=== PATIENT | female | born 1940 | race Caucasian/White ===

== ENCOUNTER → 2017-08-13 12:40 | Outpatient (CLI) | payer MEDICARE, OTHER, MEDICAID, SELFPAY ==
[2017-08-13 14:39] LABS: Absolute Neutrophil Count 3.5 X10^3/uL (2.0-7.7); Basophil# 0.02 X10^3/uL; Basophil% 0.3 % (0-1); Eosinophil# 0.17 X10^3/uL; Eosinophils% 2.6 % (0-5); Hemoglobin 14.7 g/dl (12.0-15.0); Lymphocyte % 29.5 % (19-41); Mean Corp Hgb Conc 31.3 g/gl (32-36); Mean Corpuscular Hgb 32.2 pg (27.0-32.0); Mean Corpuscular Volume 103.1 fL (81-99); Mean Platelet Vol. 11.3 fl (6.2-12.0); Monocyte# 0.88 X10^3/uL; Monocyte% 13.6 % (0-10); Neutrophil # 3.47 X10^3/uL (2.7-7.7); Neutrophil % 53.8 % (47-70); Platelet Count 98 K/mm3 (150-450); RBC Distribution Width CV 15.2 % (11.6-14.6); RBC Distribution Width SD 57.1 fl (35.1-43.9); Red Blood Count 4.56 M/mm3 (4.2-5.4); White Blood Count 6.5 K/mm3 (4.4-11.0)
[2017-08-13 14:40] LABS: POSITIVE COUNT NO; POSITIVE DIFFERENTIAL NO; POSITIVE MORPHOLOGY NO
[2017-08-13 14:50] LABS: BUN 88 mg/dL (7-18); Creatinine, Serum 2.95 mg/dL (0.55-1.02); Glucose 157 mg/dL (74-106)
[2017-08-13 14:51] LABS: BUN/Creat Ratio 29.8 RATIO (10-20); Calcium,Total 9.5 mg/dL (8.5-10.1); Chloride 98 mmol/L (98-107); EST Glomerular Filtration Rate 16 mL/min (>60); Est Glom Filt Rate - Afr Amer 20 mL/min (>60); Magnesium 2.7 mg/dL (1.6-2.6); Phosphorus 3.8 mg/dL (2.5-4.9); Potassium 5.1 mmol/L (3.5-5.1); Sodium Level 141 mmol/L (136-145)
[2017-08-13 14:59] LABS: Vitamin D,25 Hydroxy 46.4 ng/mL (29.95-100.01)
[2017-08-13 15:05] LABS: PTHIN 70.7 pg/mL (18.4-80.1)
[2017-08-13 15:11] LABS: Microalbumin,Random Urine 79.4 mg/L (NO RANGE EST.); Microalbumin:Creatinine Ratio 277.6 mg/g CRE (<30 mg/g CRE)
== END ==
PROVIDERS: Family Provider Family Medicine; PCP Family Medicine; Visit Provider Internal Medicine Nephrology
DX: N18.4 Chronic kidney disease, stage 4 (severe) (principal); D63.1 Anemia in chronic kidney disease; N25.81 Secondary hyperparathyroidism of renal origin; E83.42 Hypomagnesemia; E78.5 Hyperlipidemia, unspecified
CPT/HCPCS: 36415; 80069; 82043; 82306; 82570; 83735; 83970; 85025

== ENCOUNTER 2017-08-19 15:00 | Outpatient (RCR) | payer MEDICARE, SELFPAY ==
--- NOTE | 2017-07-01 17:24 | HP.PTEVAL_ITS ---
Patient's Visit Information ELLE ALONSO is a 76 year old F referred to Physical Therapy by DO TEE Roldan with a diagnosis of vertigo. Date of Evaluation: 07/01/17 Physical Therapist: Angélica Watkins - Visit Plan Frequency: 1-2x /Week Duration: 4 Weeks Plan: 1-2X/ week if needed for Eply and for balance training if needed/LE strength with HEP - Subjective Subjective: Pt reports that she can hardly hear. She usually get dizzy if she turns her head too fast or if she moves too fast. Sometimes she can get dizzy when she rolls over in bed but it does not matter which side. She feels the sound of her heart beat in her head and then she will get dizzy for 50% of the time. the dizziness will last maybe a minute. The room does not spin but her head does spin. She has not hit her head recently. This all started about 1 week to 1.5 weeks ago. said that the crystals in her ear is what was causing the dizziness. She normally walks with a cane since her heart attacks. She is not very steady on her feet. She reports that her hips hurt a lot - Objective + L Hallpike for torsional nystagmus that lasted 30 seconds....treated with L EPLY. Pt had a lot of trouble with rolling to R side as well as turning her head to the R with correction. + L hallpike again for trsional nystagmus that lasted about 20 seconds on second attempt and treated with L Eply with second therapist to help position pt to complete the EPLY. + L hallpike to the L for trsional nystagmus that lasted less than 10 seoconds and treated agian with the L EPLy with assist of another therapist. Advised pt to not lay flat until 9;00 tongiht. - Goals Goal 1:: I HEP Goal 2:: Abolish dizziness Goal Time Frame: 2 Weeks Goal 3:: Test balance if needed Goal Time Frame: 2 Weeks - Rehabilitation Potential Rehabilitation Potential: Good - Anticipated Interventions Patient/Client Instruction: Educate patient on: Condition, Plan of Care For the Purpose of:: To increase tolerance to activity/condition/position, To improve performance and independence with ADL's, To decrease level of supervision to perform tasks, To improve ability of physical actions for home/ community/work/leisure, To improve gait and locomotor functions Therapeutic Exercise to Include: Strength training, Balance training, Gait and locomotor training For the Purpose of:: To improve ability to perform ADL's, To increase tolerance to activity/condition/position, To improve performance and independence with ADL 's, To improve ability of physical actions for home/community/work/leisure, To improve gait and locomotor functions, To improve balance Functional Training to Include: Gait training For the Purpose of:: To improve gait and locomotor functions Manual Therapy Techniques to Include: Other Comment: EPLY Thank you for the opportunity to evaluate your patient. For Medicare and Medicare HMO plans, please review the plan of care and approve it. It will need to be FAXED BACK to us at [phone] for Medicare purposes. Please let me know if there are questions or concerns regarding this plan of care. Physician Signature: Date:
--- NOTE | 2017-08-06 19:09 | HP.PTREVAL_ITS ---
Nik Preciado DO, [id number] It has been my pleasure to treat ELLE ALONSO over the last 4 visits for vertigo. Please see the progress note below for an update on the physical therapy plan of care! Subjective: Pt returns to physical therapy with a dx of unsteady gait. She does not have the same dizziness like she used to have. If she gets dizzy its because she bends over too fast. Pt has had no recent falls. She has been using the cane for 2 years. She is spending alot of time in bed. She goes to bed around 10-11 pm and then she gets out of bed between 6am and 12pm. She takes an afternoon nap can be up to a couple of hours. Her DIL does all her grocery shopping. SHe has not been gettign out much in the cold weather. Pt has some trouble getting out of achair. She does not use the stairs. She has some trouble getting in and out of lower level cars. She reports that her R hip hurts when she moves a certain way but the L one is starting to hurt alos. She is not exercising either. Most of her activities are sitting througout the day. Pt has bed rails at home that assists with her getting in and otu of bed. Objective/Function: See above Plan Plan: 2X/ week for 4 weeks for LE strengthening, balance activities, gait training, endurance activities Goals Goal 1:: I HEP Goal 2:: Abolish dizziness Goal Time Frame: 2 Weeks Goal Progress: Goal Met Goal 3:: Test balance if needed Goal Time Frame: 2 Weeks Goal 4:: Increase FGA by 5 points to a score of 10 to decrease fall risk. Goal Time Frame: 4-6 Weeks Goal 5:: Increase LE strength by 1/2 muscle grade to increase function and decrease fall risk (LE mmt at time of eval: LE MMT: B hip abd 4/5, R hip flex 4 /5 and L 4-/5, B knee ext 4-/5, R knee flex 4/5 and L 3+/5). Goal Time Frame: 4-6 Weeks Goal 6:: Be able to walk with increase stride, odell and speed with SBA and use of straight cane Goal Time Frame: 4-6 Weeks Anticipated Interventions Patient/Client Instruction: Educate patient on: Condition, Plan of Care For the Purpose of:: To increase tolerance to activity/condition/position, To improve performance and independence with ADL's, To decrease level of supervision to perform tasks, To improve ability of physical actions for home/ community/work/leisure, To improve gait and locomotor functions Therapeutic Exercise to Include: Strength training, Balance training, Gait and locomotor training For the Purpose of:: To improve ability to perform ADL's, To increase tolerance to activity/condition/position, To improve performance and independence with ADL 's, To improve ability of physical actions for home/community/work/leisure, To improve gait and locomotor functions, To improve balance Functional Training to Include: Gait training For the Purpose of:: To improve gait and locomotor functions Manual Therapy Techniques to Include: Other Comment: EPLY Please do not hesitate to contact me at [phone] by phone or Fax: if you have questions or concerns regarding this new plan of care! Sincerely, Angélica Watkins
--- NOTE | 2017-09-08 08:51 | HP.PTDCNRP_ITS ---
HP - Discharge Summary (1) - Patient Information ELLE ALONSO was seen in my office for initial evaluation on 07/01/17. The following Plan of Care was established for this patient: Initial Frequency: 1-2x /Week Initial Duration: 4 Weeks - Anticipated Interventions Patient/Client Instruction: Educate patient on: Condition, Plan of Care For the Purpose of:: To increase tolerance to activity/condition/position, To improve performance and independence with ADL's, To decrease level of supervision to perform tasks, To improve ability of physical actions for home/ community/work/leisure, To improve gait and locomotor functions Therapeutic Exercise to Include: Strength training, Balance training, Gait and locomotor training For the Purpose of:: To improve ability to perform ADL's, To increase tolerance to activity/condition/position, To improve performance and independence with ADL 's, To improve ability of physical actions for home/community/work/leisure, To improve gait and locomotor functions, To improve balance Functional Training to Include: Gait training For the Purpose of:: To improve gait and locomotor functions Manual Therapy Techniques to Include: Other Comment: EPLY This patient was last seen in our office 08/19/17. Pertinent comments regarding their Physical therapy will appear below: DC PT. Pt LM that she will be working with hospice cause PT is just too much for her. At this point I will be discontinuing this patient from physical therapy. I would be happy to see this patient again in the future if found appropriate by the physician. Thank you! Angélica Watkins
== END 2017-08-19 19:00 | disposition home or self-care (01) ==
LOC: PT 15:00
PROVIDERS: Family Provider Family Medicine; PCP Family Medicine; Visit Provider Family Medicine
DX: H81.10 Benign paroxysmal vertigo, unspecified ear (principal); R26.89 Other abnormalities of gait and mobility; N18.4 Chronic kidney disease, stage 4 (severe); D63.1 Anemia in chronic kidney disease; N25.81 Secondary hyperparathyroidism of renal origin; E83.42 Hypomagnesemia; E78.5 Hyperlipidemia, unspecified
CPT/HCPCS: 36415; 80069; 82043; 82306; 82570; 83735; 83970; 85025; 97110; 97162; 97164; 97530; G8978; G8979

== ENCOUNTER → 2017-08-28 16:31 | Outpatient (CLI) | payer MEDICARE, OTHER, MEDICAID, SELFPAY ==
[2017-08-28 18:01] LABS: Absolute Lymphocyte Count 2.32 X10^3/ul (0.83-4.51); Absolute Neutrophil Count 4.1 X10^3/uL (2.0-7.7); Basophil# 0.02 X10^3/uL; Basophil% 0.3 % (0-1); Eosinophil# 0.17 X10^3/uL; Eosinophils% 2.1 % (0-5); Hematocrit 44.8 % (37-47); Hemoglobin 14.9 g/dl (12.0-15.0); Lymphocyte # 2.32 X10^3/ul (4.0); Lymphocyte % 29.1 % (19-41); Mean Corp Hgb Conc 33.3 g/gl (32-36); Mean Corpuscular Hgb 33.3 pg (27.0-32.0); Mean Corpuscular Volume 100.2 fL (81-99); Mean Platelet Vol. 11.5 fl (6.2-12.0); Monocyte# 1.29 X10^3/uL; Monocyte% 16.2 % (0-10); Neutrophil # 4.13 X10^3/uL (2.7-7.7); Neutrophil % 51.7 % (47-70); Platelet Count 109 K/mm3 (150-450); RBC Distribution Width CV 15.1 % (11.6-14.6); RBC Distribution Width SD 55.7 fl (35.1-43.9); Red Blood Count 4.47 M/mm3 (4.2-5.4)
[2017-08-28 18:17] LABS: POSITIVE COUNT NO; POSITIVE DIFFERENTIAL NO; POSITIVE MORPHOLOGY NO
[2017-08-28 18:19] LABS: Color, Urine Yellow (Yellow); Glucose, Dipstick Normal (Normal); Ketone-Dipstick Negative (Negative); Leukocyte Esterase-Dipstick 500 /ul (Negative); Nitrite-Dipstick Negative (Negative); Occult Blood-Urine 50 /ul (Negative); Protein-Dipstick 30 mg/dl (Negative); Urine Bilirubin Dipstick Negative (Negative); Urine Clarity Cloudy (Clear); Urine Urobilinogen Normal (Normal); Urine pH 6.5 (5.0 - 8.0)
[2017-08-28 19:05] LABS: Anion Gap 7 (5-15); BUN 110 mg/dL (7-18); BUN/Creat Ratio 29.8 RATIO (10-20); Calcium,Total 9.8 mg/dL (8.5-10.1); Chloride 98 mmol/L (98-107); Creatinine, Serum 3.69 mg/dL (0.55-1.02); EST Glomerular Filtration Rate 13 mL/min (>60); Est Glom Filt Rate - Afr Amer 15 mL/min (>60); Glucose 111 mg/dL (74-106); Potassium 4.7 mmol/L (3.5-5.1); Sodium Level 140 mmol/L (136-145)
== END ==
PROVIDERS: Family Provider Family Medicine; PCP Family Medicine; Visit Provider Family Medicine
DX: N18.4 Chronic kidney disease, stage 4 (severe) (principal); R53.83 Other fatigue
CPT/HCPCS: 36415; 80048; 81002; 85025; 87086

== ENCOUNTER 2017-08-28 20:06 | Outpatient (CLI) | payer MEDICARE, OTHER, MEDICAID, SELFPAY ==
[2017-08-28 20:07] VITALS: BP 142/89; PULSE 77; RESP 17; TEMP 36.3; O2SAT 94; BMI 35.2
--- NOTE | 2017-08-28 20:58 | CT_ITS ---
STUDY: CT BRAIN WITHOUT CONTRAST REASON FOR EXAM: Female, 76 years old. Dizziness RADIATION DOSAGE (If Supplied By Facility): CTDIvol = ( 44.99 ) mGy, DLP = ( 796.11 ) mGycm TECHNIQUE: Transaxial CT imaging of the brain was performed without administration of intravenous contrast material. Individualized dose optimization techniques were used for this CT. COMPARISON: 796.11 FINDINGS: Normal soft tissue structures. Normal calvarium. Intracranial atherosclerosis. Calcification posterior falx. Normal size ventricles and extra-axial spaces for the patient's age. Normal white matter tracts of the cerebral hemispheres. Normal basal ganglia and thalami. Normal brainstem. Normal cerebellum. There is no intracranial hemorrhage. There are no findings of an acute ischemic infarction. Normal visualized paranasal sinuses. CT/Brain/Head without Contrast IMPRESSION: Normal unenhanced CT scan of the brain. Electronically Signed: Xavi Calderon MD at 21:59 EDT , Service support ,
--- NOTE | 2017-08-28 20:58 | EKG12_ITS ---
Test Reason : Blood Pressure : / mmHG Vent. Rate : 090 BPM Atrial Rate : 092 BPM P-R Int : 000 ms QRS Dur : 126 ms QT Int : 394 ms P-R-T Axes : 000 049 -14 degrees QTc Int : 481 ms Atrial fibrillation Right bundle branch block Abnormal ECG Confirmed by KLARISSA CASTRO, ANJUM ([id number]), script editor SUZI SEGOVIA ([id number]) on 09/01/2017 3:00:56 PM Referred By: CRYSTAL Confirmed By:ANJUM CYR MD
--- NOTE | 2017-08-28 21:00 | RAD_ITS ---
STUDY: X-RAY CHEST REASON FOR EXAM: Female, 76 years old. Dizziness TECHNIQUE: Single frontal view of the chest. COMPARISON: April 16, 2014 FINDINGS: The lungs are clear and expanded. There is no demonstrated pleural abnormality. There is severe cardiac enlargement. Normal mediastinum and noni. Normal visualized pulmonary arteries. Normal visualized aortic arch and descending thoracic aorta. Normal visualized thoracic spine. Normal visualized ribs, clavicles, and shoulders. There is no demonstrated abnormality of the visualized soft tissue structures of the upper abdomen. RAD/Chest 1 View (Portable) IMPRESSION: Severe cardiomegaly unchanged Electronically Signed: Xavi Calderon MD at 21:27 EDT , Service support ,
--- NOTE | 2017-08-28 21:10 | ED.VISSUMM ---
- ER Visit Summary Date of Service: 08/28/17 Chief Complaint: [] Dizziness for weeks abnormal kidney function at doctor's office today History of Present Illness: The patient is a 76 F [] history of renal insufficiency dizziness she has been seen and treated by her physician she has been on different medicines to help control her dizziness they really have not helped she indicates that she will suffer a 1-2 minute spell of spinning sensation and then it resolves she is totally functional during the spells she is able to eat and drink and talk of her extremities, she has no history of stroke prior distant history for [place] in the renal insufficiency. She has been seen by her physicians recently and was told she has abnormal renal function sent to the emergency department today for evaluation, she indicates she has been eating and drinking without difficulty and she is passing normal urine and normal bowel habits she is resting in the bed with no complaints, she states she feels fine she really wants to go home she only came in based on her doctor's recommendation daughters in the room with her and lives with her Physical Examination: [] Awake alert her cranial nerves are normal I cannot reproduce her dizziness or extra muscles are full her oral cavity is unremarkable neck is supple lungs are clear heart tones are normal abdomen soft nontender she is moving all 4 extremities well without difficulty the daughter reports that sometimes when she is up she feels fatigued, and she ended intermittently seems to lack energy but this is something been going on for weeks, the patient Test Results: [] Emergency Department Course and Treatment: [] Has seen Dr. Castillo of nephrology and she has been told she does not require dialysis Her creatinine is 3.69 it has been in that range in the past it is slightly elevated from her baseline., Her lipase is elevated to about 430 she has no abdominal pain, the rest of her labs are generally unremarkable see those reports her head CT shows nothing acute her x-ray shows chronic severe cardiomegaly. Asked the hospitalist Dr. zhou to see the patient and he did extensive review of her chart spoke with cable television technician spoke with her primary care physician, spoke with the patient her family at this time the plan is to have her stop the Zaroxolyn, have her follow-up with her physicians for repeat blood draw, the patient and family feel comfortable with discharge home with that plan Treatment Plan: [] Disposition: [] Home stable Impression: [] Worsening renal insufficiency, acute recurrent dizziness, history of cardiovascular disease CHF hypertension A. fib This note was generated with [employer] dictation software. It may contain incorrect words, spelling, and punctuation that were not noted in review of the chart prior to signing ED Disposition - Plan for ED Patient: Chief Complaint: Dizziness Referrals: Nik Preciado DO [Primary Care Provider] -
[2017-08-28] MEDS: 0.9% Normal Saline 1,000 ML 1000 ML IV (21:21)
[2017-08-28] MEDS: Ondansetron 4 MG/2 ML Vial IV (21:21)
[2017-08-28 21:41] LABS: Absolute Lymphocyte Count 1.88 X10^3/ul (0.83-4.51); Absolute Neutrophil Count 3.9 X10^3/uL (2.0-7.7); Basophil# 0.01 X10^3/uL; Basophil% 0.1 % (0-1); Eosinophil# 0.17 X10^3/uL; Eosinophils% 2.5 % (0-5); Hematocrit 47.7 % (37-47); Lymphocyte # 1.88 X10^3/ul (4.0); Lymphocyte % 27.2 % (19-41); Mean Corp Hgb Conc 31.4 g/gl (32-36); Mean Corpuscular Hgb 32.2 pg (27.0-32.0); Mean Corpuscular Volume 102.4 fL (81-99); Mean Platelet Vol. 11.4 fl (6.2-12.0); Monocyte# 0.92 X10^3/uL; Monocyte% 13.3 % (0-10); Neutrophil % 56.5 % (47-70); Platelet Count 111 K/mm3 (150-450); RBC Distribution Width CV 15.2 % (11.6-14.6); Red Blood Count 4.66 M/mm3 (4.2-5.4); White Blood Count 6.9 K/mm3 (4.4-11.0)
[2017-08-28 21:49] LABS: POSITIVE COUNT NO; POSITIVE DIFFERENTIAL NO; POSITIVE MORPHOLOGY NO
[2017-08-28 21:55] VITALS: O2SAT 87
[2017-08-28 21:59] VITALS: O2SAT 94
[2017-08-28 21:59] LABS: Mucous, Urine 0 SEEN /hpf (<or=2+)
[2017-08-28 22:00] LABS: AST(SGOT) 40 U/L (15-37); Alanine Aminotransfer ALT/SGPT 20 U/L (13-56); Alkaline Phosphatase 124 U/L (45-117); Anion Gap 8 (5-15); BUN 113 mg/dL (7-18); BUN/Creat Ratio 30.6 RATIO (10-20); Bilirubin, Direct 0.15 mg/dL (0.00-0.30); Calcium,Total 9.5 mg/dL (8.5-10.1); Chloride 97 mmol/L (98-107); Creatinine, Serum 3.69 mg/dL (0.55-1.02); EST Glomerular Filtration Rate 13 mL/min (>60); Est Glom Filt Rate - Afr Amer 15 mL/min (>60); Estimated Creatinine Clearance 10.26 ml/min; Globulin 4.7 g/dL (2.2-4.2); Glucose 169 mg/dL (74-106); Lipase 442 U/L (73-393); Potassium 4.7 mmol/L (3.5-5.1); Protein, Total 7.7 g/dL (6.4-8.2); Sodium Level 137 mmol/L (136-145)
--- NOTE | 2017-08-28 22:01 | ED.RN ---
lab called with critical lab results. Creatinine level 1.13. Dr. Finch made aware. no new orders at this time
[2017-08-28 22:08] LABS: Color, Urine Yellow (Yellow); Glucose, Dipstick Normal (Normal); Ketone-Dipstick Negative (Negative); Leukocyte Esterase-Dipstick 500 /ul (Negative); Nitrite-Dipstick Negative (Negative); Occult Blood-Urine 10 /ul (Negative); Protein-Dipstick Negative (Negative); Urine Bilirubin Dipstick Negative (Negative); Urine Clarity Cloudy (Clear); Urine Urobilinogen Normal (Normal)
[2017-08-28 22:32] LABS: Squamous Epithelial Cells - UA 0-5 SEEN /hpf (5-10)
[2017-08-28 22:33] LABS: Hyaline Cast 0-5 SEEN /lpf (0-5)
[2017-08-28 22:34] LABS: Bacteria 4+ /hpf (None Seen)
[2017-08-28 22:35] LABS: Red Blood Cells-Urine 0-5 SEEN /hpf (0-5)
[2017-08-28 22:36] LABS: Calcium Oxalate Crystals Ur RARE /hpf (<or=2+)
[2017-08-28 22:39] LABS: White Blood Cells 10-25 SEEN /hpf (0-5)
[2017-08-28 22:48] LABS: BNP,B-Type NATRIURETIC PEPTIDE 58.4 pg/mL (0-100)
--- NOTE | 2017-08-28 23:11 | ED.DEP ---
ED Disposition - Plan for ED Patient: Chief Complaint: Dizziness Instructions: ED Dizziness [facility] Referrals: Nik Preciado DO [Primary Care Provider] - Additional Instructions: Please follow the instructions given to you by , please have your blood test repeated in the next few days call your physician's office to schedule
[2017-08-28 23:35] VITALS: BP 121/78; PULSE 71; RESP 16; O2SAT 99
[2017-09-01 18:16] LABS: Absolute Neutrophil Count 4.7 X10^3/uL (2.0-7.7); Basophil# 0.02 X10^3/uL; Basophil% 0.2 % (0-1); Eosinophil# 0.16 X10^3/uL; Eosinophils% 1.8 % (0-5); Hematocrit 46.8 % (37-47); Hemoglobin 15.1 g/dl (12.0-15.0); Lymphocyte % 31.3 % (19-41); Mean Corp Hgb Conc 32.3 g/gl (32-36); Mean Corpuscular Hgb 32.8 pg (27.0-32.0); Mean Corpuscular Volume 101.7 fL (81-99); Mean Platelet Vol. 11.7 fl (6.2-12.0); Monocyte# 1.24 X10^3/uL; Monocyte% 13.9 % (0-10); Neutrophil # 4.69 X10^3/uL (2.7-7.7); Neutrophil % 52.5 % (47-70); Platelet Count 107 K/mm3 (150-450); RBC Distribution Width CV 15.1 % (11.6-14.6); RBC Distribution Width SD 56.4 fl (35.1-43.9); White Blood Count 8.9 K/mm3 (4.4-11.0)
[2017-09-01 18:17] LABS: POSITIVE COUNT NO; POSITIVE DIFFERENTIAL NO; POSITIVE MORPHOLOGY NO
[2017-09-01 18:20] LABS: Anion Gap 9 (5-15); BUN 103 mg/dL (7-18); BUN/Creat Ratio 28.5 RATIO (10-20); Chloride 96 mmol/L (98-107); Creatinine, Serum 3.62 mg/dL (0.55-1.02); EST Glomerular Filtration Rate 13 mL/min (>60); Est Glom Filt Rate - Afr Amer 16 mL/min (>60); Estimated Creatinine Clearance 10.46 ml/min; Glucose 95 mg/dL (74-106); Lipase 402 U/L (73-393); Sodium Level 139 mmol/L (136-145)
== END 2017-09-01 14:46 ==
LOC: ED 21:28 → PR 09-01 14:48
PROVIDERS: Emergency Provider Emergency Medicine; Family Provider Family Medicine; PCP Family Medicine; Visit Provider Family Medicine
DX: E11.22 Type 2 diabetes mellitus with diabetic chronic kidney disease (principal); N18.5 Chronic kidney disease, stage 5; R11.10 Vomiting, unspecified; R53.83 Other fatigue; R06.02 Shortness of breath; Z79.4 Long term (current) use of insulin; Z79.899 Other long term (current) drug therapy
CPT/HCPCS: 36415; 70450; 71045; 80048; 80076; 81001; 81002; 83690; 83880; 84484; 85025; 87077; 87086; 87088; 87186; 93005; 96361; 96374; 99283; J7030; A4216; J2405

== ENCOUNTER → 2017-11-20 14:38 | Outpatient (CLI) | payer MEDICARE, OTHER, MEDICAID, SELFPAY ==
[2017-11-20 15:43] LABS: Absolute Lymphocyte Count 1.45 X10^3/ul (0.83-4.51); Absolute Neutrophil Count 3.1 X10^3/uL (2.0-7.7); Basophil# 0.02 X10^3/uL; Basophil% 0.4 % (0-1); Eosinophil# 0.19 X10^3/uL; Eosinophils% 3.4 % (0-5); Hematocrit 44.9 % (37-47); Hemoglobin 14.3 g/dl (12.0-15.0); Lymphocyte # 1.45 X10^3/ul (4.0); Lymphocyte % 25.8 % (19-41); Mean Corp Hgb Conc 31.8 g/gl (32-36); Mean Corpuscular Hgb 32.9 pg (27.0-32.0); Mean Corpuscular Volume 103.2 fL (81-99); Mean Platelet Vol. 11.4 fl (6.2-12.0); Monocyte# 0.85 X10^3/uL; Monocyte% 15.2 % (0-10); Neutrophil # 3.09 X10^3/uL (2.7-7.7); Platelet Count 101 K/mm3 (150-450); RBC Distribution Width SD 56.7 fl (35.1-43.9); Red Blood Count 4.35 M/mm3 (4.2-5.4); White Blood Count 5.6 K/mm3 (4.4-11.0)
[2017-11-20 15:50] LABS: POSITIVE COUNT NO; POSITIVE DIFFERENTIAL NO; POSITIVE MORPHOLOGY NO
[2017-11-20 15:52] LABS: ALB/GLOB Ratio 0.8 RATIO (0.9-2.4); AST(SGOT) 29 U/L (15-37); Alanine Aminotransfer ALT/SGPT 23 U/L (13-56); Alkaline Phosphatase 129 U/L (45-117); Anion Gap 9 (5-15); BUN 99 mg/dL (7-18); BUN/Creat Ratio 25.8 RATIO (10-20); Calcium,Total 9.3 mg/dL (8.5-10.1); Chloride 95 mmol/L (98-107); Creatinine, Serum 3.83 mg/dL (0.55-1.02); EST Glomerular Filtration Rate 12 mL/min (>60); Est Glom Filt Rate - Afr Amer 15 mL/min (>60); Globulin 3.7 g/dL (2.2-4.2); Glucose 67 mg/dL (74-106); Potassium 3.2 mmol/L (3.5-5.1); Protein, Total 6.7 g/dL (6.4-8.2); Sodium Level 139 mmol/L (136-145)
[2017-11-20 16:12] LABS: BNP,B-Type NATRIURETIC PEPTIDE 350.1 pg/mL (0-100)
== END ==
PROVIDERS: Family Provider Family Medicine; PCP Family Medicine; Visit Provider Family Medicine
DX: R60.0 Localized edema (principal); E11.21 Type 2 diabetes mellitus with diabetic nephropathy; N18.4 Chronic kidney disease, stage 4 (severe); Z51.5 Encounter for palliative care; I48.2 Chronic atrial fibrillation
CPT/HCPCS: 36415; 80053; 83880; 85025